=== PATIENT | female | born 1985 | race Caucasian/White ===

== ENCOUNTER 2016-04-18 09:07 | Emergency (ER) | payer SELFPAY | END 2016-04-18 10:21 | disposition home or self-care (01) | LOC: ER 09:07 ==

== ENCOUNTER 2016-04-25 13:25 | Emergency (ER) | payer SELFPAY ==
[2016-04-25] MEDS ORDERED: OXYCODONE/APAP 5/325 TAB ONE (15:02)
== END 2016-04-25 15:44 | disposition home or self-care (01) ==
LOC: ER 13:25